=== PATIENT | female | born 1980 | race Caucasian/White ===

== ENCOUNTER 2017-07-26 10:30 | Emergency (ER) | payer OTHER ==
[~2017-07-26] VITALS: Ht 160 cm; Wt 57.9 kg
[~2017-07-26 10:30] MED LIST: CHERATUSSIN DA473 ML PO; LEVOFLOXACIN500 MG PO; PROAIR RESPICL90 MCG IH; PROZAC40 MG PO; TYLENOL WITH C1 EACH PO; VITAMIN D50000 UNI4 PO; XANAX0.5 MG PO
[2017-07-26] MEDS ORDERED: ELIMITE 5% CREA60 GM TP (13:10)
[2017-07-26] MEDS ORDERED: MEDROL DOSEPAK4 MG PO (13:10)
[2017-07-26] MEDS ORDERED: BENADRYL50 MG PO (13:10)
[2017-07-26 13:13] VITALS: BP 111/73
== END 2017-07-26 13:16 | disposition home or self-care (01) ==
LOC: EME 10:30
DX: S40.862A Insect bite (nonvenomous) of left upper arm, initial encounter (principal); S40.861A Insect bite (nonvenomous) of right upper arm, initial encounter; S80.862A Insect bite (nonvenomous), left lower leg, initial encounter; S80.861A Insect bite (nonvenomous), right lower leg, initial encounter; S40.261A Insect bite (nonvenomous) of right shoulder, initial encounter; S00.86XA Insect bite (nonvenomous) of other part of head, initial encounter; W57.XXXA Bitten or stung by nonvenomous insect and other nonvenomous arthropods, initial encounter; F41.9 Anxiety disorder, unspecified; Z87.891 Personal history of nicotine dependence; Z88.0 Allergy status to penicillin
CPT/HCPCS: 99281; 99283